=== PATIENT | male | born 1975 | race Caucasian/White ===

== ENCOUNTER 2017-08-23 15:46 | Emergency (ER) | payer MEDICARE, MEDICAID ==
[~2017-08-23] VITALS: Ht 182.9 cm; Wt 79.5 kg
[~2017-08-23 15:46] MED LIST: BUSP10TA11 PO; DIPH-423 PO; IBUP-1984 PO; NABU500T2 PO; NAPR-56 PO; OMEP-84 PO; ONDA4TAB6 PO; PROC-8 PO; SACC250C PO
[2017-08-23] MEDS ORDERED: AMOX-422 PO (16:00)
[2017-08-23] MEDS ORDERED: HYDR-569 PO (16:00)
[2017-08-23 16:01] VITALS: BP 119/91
== END 2017-08-23 16:23 | disposition home or self-care (01) ==
LOC: ER 15:47
DX: K05.10 Chronic gingivitis, plaque induced (principal); G35 Multiple sclerosis; G43.909 Migraine, unspecified, not intractable, without status migrainosus; F12.10 Cannabis abuse, uncomplicated; Z56.0 Unemployment, unspecified; Z88.8 Allergy status to other drugs, medicaments and biological substances; Z88.6 Allergy status to analgesic agent; Z88.1 Allergy status to other antibiotic agents; Z98.818 Other dental procedure status
CPT/HCPCS: 99283